=== PATIENT | female | born 1955 | race Caucasian/White ===

== ENCOUNTER 2021-08-23 13:57 | Emergency (ER) | payer MEDICARE, SELFPAY ==
[2021-08-23 13:58] VITALS: BP 156/70; PULSE 79; RESP 18; TEMP 36.2; O2SAT 100; BMI 25.7
--- NOTE | 2021-08-23 14:44 | EKG12_ITS ---
Test Reason : SOB Blood Pressure : / mmHG Vent. Rate : 070 BPM Atrial Rate : 070 BPM P-R Int : 216 ms QRS Dur : 078 ms QT Int : 426 ms P-R-T Axes : 033 -11 057 degrees QTc Int : 460 ms Sinus rhythm with 1st degree A-V block Otherwise normal ECG Confirmed by DEMARCO SUAZO, ALBERTO ([id number]), film editor supervisor GWENDOLYN SANTIAGO ([id number]) on 08/25/2021 1:47:36 PM Referred By: KAYA Confirmed By:RICKEY PAL MD
--- NOTE | 2021-08-23 14:45 | EX.ED.DYSGE1 ---
HPI History of Present Illness Chief Complaint: Shortness of Breath Informant: patient Onset/Context/Timing Onset: Today (For the last couple hours) Context: Gradual Onset Timing: Continuous Quality: hard to take a deep breath Location: chest Current Severity: Mild Maximum Severity: Mild Worsened by: nothing Relieved by: a little after albuterol MDI, coughing hard Associated Symptoms Associated Symptoms: mild nonpleuritic chest tightness Narrative Narrative: Patient has had COVID mood before about 11 days now, she tested positive on day #3, her became ill with it before she did, she states today she woke up and has felt better as she has recently, but then a couple hours later she was coughing a lot and felt like her chest was a little tight, she feels like she needs to cough up some phlegm but cannot, and feels mildly dyspneic. This was not the case before. When asked about medical history, she states she has allergies but basically does not take medicines for anything else, and she has an albuterol MDI that she tried at home. She has this because sometimes my allergies give me chest tightness although she denies having a known history of asthma. She denies any leg pain or swelling. No history of DVT or PE. She was prescribed a Z-N[place] the day she was diagnosed because of all my sinus congestion and she states that it did not help. She was prescribed no other medications during this course of COVID. Said she was feeling a little lightheaded off and on today but admits that she was hyperventilating at one point. She denies any near-syncope or syncope. States she has been drinking lots of water to try to stay hydrated. [facility] Medical History (Updated 08/23/21 @ 16:[address] Prabhakar Gonzalez MD) Seasonal allergies Allergy/AdvReac Type Severity Reaction Status Date / Time codeine AdvReac Itching Verified 08/23/21 14:00 ANTIFUNGALS AdvReac Other Uncoded 08/23/21 14:00 Social History Smoking Status: Never smoker [facility] ED Constitutional Constitutional ED: Reports malaise; Denies chills or fever(s) Eyes Eyes: Denies change in vision or diplopia ENT ENT ED: Denies rhinorrhea or sore throat Cardiovascular Cardiovascular: Reports chest pain and lightheadedness; Denies palpitations or pedal edema Respiratory/Chest Respiratory/Chest: Reports as per HPI, cough and dyspnea Gastrointestinal Gastrointestinal: Denies abdominal pain, diarrhea, nausea or vomiting Genitourinary Genitourinary ED: Denies dysuria or hematuria Musculoskeletal Musculoskeletal: Denies back pain or neck pain Integumentary Denies abscess or rash Neurologic Neurologic: Denies headache(s), paresthesias or weakness Psychiatric Psychiatric: Denies anxiety or suicidal thoughts EXAM Physical Exam Const Vital Signs: 08/23/21 13:58 08/23/21 14:59 Temperature 97.2 F L Temperature Source Temporal Pulse Rate 79 70 Respiratory Rate 18 16 Blood Pressure 156/70 H Blood Pressure Mean 98 Pulse Ox 100 100 Oxygen Delivery Method Room Air Room Air Positive well nourished and well developed Constitutional Narrative: Well-appearing in no distress General Appearance ED: well developed and NAD HEENT Reports moist mucous membranes normocephalic and atraumatic Eyes PERRL and EOMs intact bilaterally Neck full ROM, supple and no meningeal signs Resp normal respiratory effort and clear to auscultation bilaterally Effort and Inspection: able to speak in complete sentences Cardio regular rate, regular rhythm and no murmurs Rate: Negative for tachycardic GI non-tender and non-distended Auscultation: normoactive bowel sounds Palpation: soft Back/Spine no CVA tenderness General Back: other FROM Extremity normal to inspection, no calf tenderness and no pedal edema General Extremety ED: Negative for edema, pulses abnormal or tenderness General Extremity: Negative for edema or pulses abnormal Neuro oriented x3, CN's II-XII intact bilaterally, no sensory deficits noted and gait normal Sensorium / Orientation: awake and alert Motor Exam: strength 5/5 throughout Skin no rashes or lesions noted and no wounds MDM MDM MDM Narrative Medical decision making narrative: Patient's chest symptoms, discomfort and dyspnea, are resolved after single duo nebulizer treatment. Her x-ray 1 view on my interpretation is normal, the labs and troponin are normal, her EKG is normal. Her pulse ox is normal, 100%. She is reassured, these are not symptoms of pulmonary embolus, she does not have tachycardia, even with exertion. She already has an albuterol MDI, and I see no indication for prednisone/steroids at this time. Supportive care advised, we discussed reasons to return. Lab Data Attestation: I reviewed the patient's lab results. Labs: Laboratory Results - last 24 hr 08/23/21 08/23/21 15:35 15:35 WBC 9.5 RBC 4.61 Hgb 12.0 Hct 37.1 MCV 80.5 L MCH 26.0 L MCHC 32.3 RDW Std Deviation 38.1 RDW Coeff of Nickie 13.2 Plt Count 494 H MPV 8.6 Immature Gran % (Auto) 0.700 Neut % (Auto) 59.3 Lymph % (Auto) 31.6 [place] % (Auto) 7.1 Eos % (Auto) 0.9 Baso % (Auto) 0.4 Absolute Neuts (auto) 5.7 Absolute Lymphs (auto) 3.01 Nucleated RBC % 0 Sodium 136 Potassium 3.2 L Chloride 100 Carbon Dioxide 25.0 Anion Gap 11 BUN 14 Creatinine 1.08 H Estim Creat Clear Calc 47.35 Est GFR (MDRD) Af Amer 66 Est GFR (MDRD) Non-Af 54 L BUN/Creatinine Ratio 13.0 Glucose 128 H Calcium 9.5 Troponin I High Sens < 3 L Radiography Diagnostic Testing: Clinical Impression(s) from Imaging Studies Chest X-Ray 08/23/21 15:55 IMPRESSION: Normal x-ray examination of the chest. Electronically Signed: Bin Rosario MD at 16:15 EDT , EKG Initial EKG: Attestation: I personally reviewed and interpreted this EKG as follows: Interpretation: Sinus Rhythm, No Acute Injury Pattern and AV Block (1st deg) Comments: otherwise, nml Discharge Plan Triage Chief Complaint: Shortness of Breath ED Provider: Prabhakar Gonzalez Dx/Rx/DC Orders Clinical Impression: Mild reactive airways disease, COVID-19 Instructions: ED URI, Viral W/ Wheezing (Adult) Primary Care Provider: Sony Burleson Referrals: Sony Burleson MD [Primary Care Provider] - 3-5 Days if not improving Activity Restrictions/Additional Instructions: If you have recurrent symptoms, taking 2 or 3 puffs from your albuterol inhaler is reasonable, if you continue to worsen and you feel you need to be seen in the emergency department, feel free to return. Disposition Disposition: Home, Self Care
--- NOTE | 2021-08-23 14:47 | NURSING ---
NO OLD EKGS
[2021-08-23] MEDS: Ipratropium/Albuterol Sulfate 3 ML AMPUL.NEB INHALATION (14:57)
[2021-08-23 14:59] VITALS: PULSE 70; RESP 16; O2SAT 100
[2021-08-23 15:55] LABS: Absolute Lymphocyte Count 3.01 X10^3/uL (0.83-4.51); Absolute Neutrophil Count 5.7 X10^3/uL (2.0-7.7); Basophil# 0.04 X10^3/uL; Basophil% 0.4 % (0-1); Eosinophil# 0.09 X10^3/uL; Eosinophils% 0.9 % (0-5); Hematocrit 37.1 % (37-47); Lymphocyte # 3.01 X10^3/ul (0.83-4.51); Lymphocyte % 31.6 % (19-41); Mean Corp Hgb Conc 32.3 g/dL (32-36); Mean Corpuscular Volume 80.5 fL (81-99); Mean Platelet Vol. 8.6 fl (6.2-12.0); Monocyte# 0.68 X10^3/uL; Monocyte% 7.1 % (0-10); NRBC Flagged by Analyzer 0 % (0-5); Neutrophil # 5.65 X10^3/uL (2.7-7.7); Neutrophil % 59.3 % (47-70); Platelet Count 494 K/mm3 (150-450); RBC Distribution Width CV 13.2 % (11.6-14.6); RBC Distribution Width SD 38.1 fl (35.1-43.9); Red Blood Count 4.61 M/mm3 (4.2-5.4); White Blood Count 9.5 K/mm3 (4.4-11.0)
--- NOTE | 2021-08-23 15:55 | RAD_ITS ---
STUDY: X-RAY CHEST REASON FOR EXAM: Female, 65 years old. cough sob cp covid TECHNIQUE: Single frontal view of the chest. COMPARISON: None. FINDINGS: The lungs are clear and expanded. There is no demonstrated pleural abnormality. Normal size heart. Normal mediastinum and jena. Normal visualized pulmonary arteries. Normal visualized aortic arch and descending thoracic aorta. Normal visualized thoracic spine. Normal visualized ribs, clavicles, and shoulders. There is no demonstrated abnormality of the visualized soft tissue structures of the upper abdomen. RAD/Chest 1 View (Portable) IMPRESSION: Normal x-ray examination of the chest. Electronically Signed: Bin Rosario MD at 16:15 EDT ,
[2021-08-23 16:13] LABS: Anion Gap 11 (5-15); BUN 14 mg/dL (7-18); Calcium,Total 9.5 mg/dL (8.5-10.1); Chloride 100 mmol/L (98-107); Creatinine, Serum 1.08 mg/dL (0.55-1.02); EST Glomerular Filtration Rate 54 mL/min (>60); Est Glom Filt Rate - Afr Amer 66 mL/min (>60); Estimated Creatinine Clearance 47.35 ml/min; Glucose 128 mg/dL (74-106); Potassium 3.2 mmol/L (3.5-5.1); Sodium Level 136 mmol/L (136-145); Troponin-I HS < 3 pg/mL (3.0-54.0)
== END 2021-08-23 17:05 | disposition home or self-care (01) ==
PROVIDERS: Emergency Provider Emergency Medicine; PCP Family Medicine; Visit Provider Emergency Medicine
DX: U07.1 COVID-19 (principal); J45.909 Unspecified asthma, uncomplicated
CPT/HCPCS: 71045; 80048; 84484; 85025; 93005; 94640; 99282; A4216

== ENCOUNTER 2024-04-15 16:55 | Emergency (ER) | payer MEDICARE, SELFPAY ==
[2024-04-15 16:55] VITALS: BP 146/64; PULSE 76; RESP 16; TEMP 35.7; O2SAT 100; BMI 21.9
== END 2024-04-15 17:21 | disposition left against medical advice (07) ==
LOC: ED 17:28
PROVIDERS: PCP Family Medicine
DX: Z53.21 Procedure and treatment not carried out due to patient leaving prior to being seen by health care provider (principal)

== ENCOUNTER 2024-07-05 16:33 | Emergency (ER) | payer MEDICARE, SELFPAY ==
[2024-07-05 16:34] VITALS: BP 133/68; PULSE 70; RESP 18; TEMP 36.6; O2SAT 100; BMI 20.7
--- NOTE | 2024-07-05 17:10 | EKG12_ITS ---
Test Reason : Blood Pressure : */* mmHG Vent. Rate : 58 BPM Atrial Rate : 58 BPM P-R Int : 272 ms QRS Dur : 76 ms QT Int : 448 ms P-R-T Axes : 68 -7 69 degrees QTcB Int : 439 ms Sinus bradycardia with 1st degree A-V block Otherwise normal ECG Confirmed by Juan Manuel Blevins ([id number]), newspaper or periodical editor GWENDOLYN SANTIAGO ([id number]) on 07/06/2024 1:17:55 PM Referred By: Confirmed By: Juan Manuel Blevins
--- NOTE | 2024-07-05 17:14 | EDS_ITS ---
HPI History of Present Illness Chief Complaint: Abd Pain Narrative Narrative: Chief complaint and HPI: Epigastric abdominal pain. 68-year-old female with past medical history of recurrent epigastric abdominal pain and cholecystectomy presents for evaluation of epigastric abdominal pain. Patient states she has been having epigastric abdominal pain for the past 6 to 9 months. She states that she has been following with her PCP and GI, was recently switched to Protonix 3 days ago. Patient states she follows with Dr. Azar. She states she had an EGD in 2021 that was unremarkable. Patient states this pain developed approximately 3 hours ago. Pain usually resolves with Gin-[place] tablet but did not improve which is why she presents. She denies any fever, chills, shortness of breath, chest pain, nausea, vomiting, diarrhea, constipation, dysuria. Review of systems: See HPI Medications: As listed on the chart Allergies: As listed on the chart PFSH: Per chart Vital signs: As listed on the chart. Reviewed. Physical exam: Gen: A&O x3, NAD Head: Normocephalic, atraumatic Eyes: No sclera icterus, conjunctiva clear ENT: Moist mucous membranes Neck: Trachea midline, No JVD CV: RRR, no murmurs, no peripheral edema Resp: Lungs CTA BL, no w/r/c GI: Abd soft, non-distended, tender to palpation in the epigastrium,no rebound or rigidity : No CVA tenderness Musc: Full ROM, no deformity Skin: Warm, dry Neuro: Alert, oriented, grossly intact, sensation intact Psych: Cooperative, appropriate mood and affect PFSH PFSH Medical History Seasonal allergies Home Medications ?Medication ?Instructions ?Recorded ?Last Taken ?Type omeprazole 20 mg capsule,delayed 20 mg PO DAILY 07/05/24 History release Allergy/AdvReac Type Severity Reaction Status Date / Time Antifungal - Imidazole AdvReac NEEDS Verified 07/05/24 20:12 FOLLOW-UP codeine AdvReac Itching Verified 07/05/24 20:12 Family History no significant family his Social History Smoking Status: Former smoker EXAM Physical Exam Const Vital Signs: 07/05/24 16:34 07/05/24 18:34 07/05/24 20:12 Temperature 97.9 F Temperature Source Oral Pulse Rate 70 61 Respiratory Rate 18 19 H Blood Pressure 133/68 H 118/62 127/71 H Blood Pressure Mean 89 80 89 Pulse Ox 100 100 99 Oxygen Delivery Method Room Air Room Air Room Air 07/05/24 22:34 Temperature 97.9 F Temperature Source Pulse Rate 59 L Respiratory Rate 17 Blood Pressure 116/63 Blood Pressure Mean 80 Pulse Ox 99 Oxygen Delivery Method MDM MDM MDM Narrative Medical decision making narrative: 68-year-old female with past medical history of recurrent epigastric abdominal pain and cholecystectomy presents for evaluation of epigastric abdominal pain. Onset 3 hours ago. Patient follows with GI. Was recently switched to Protonix. Differential diagnosis includes but is not limited to GERD, gastritis, PUD, pancreatitis, electrolyte abnormality. NS bolus, GI cocktail, Pepcid ordered for symptoms. Abdominal labs ordered including CT abdomen and pelvis. CBC with mild leukocytosis 11.3. No anemia. CMP with transaminitis and elevated alk phos. AST 309, ALT 190, alk phos 151. Lipase elevated at 111. Troponin unremarkable x 2. UA negative for UTI. CT abdomen pelvis shows dilated intra and extrahepatic biliary ducts. The gallbladder surgically absent. Her common bile duct measures up to 20 mm approximately. Recommend further assessment with MRCP. I do not have previous labs to compare to for patient's transaminitis. I reached out to her PCP Dr. Parker. He was able to look at previous laboratory results for me. Patient just recently had laboratory workup and at that time had no transaminitis or elevated alk phos. Concern is for choledocholithiasis. On reevaluation, patient states her pain is under control with the previous treatment and declined further pain medicine. Although pain is still present. I do not have GI on-call at this time. I did reach out to the hospitalist given that GI is not available on-call and if patient does have a stone on MRCP she will likely need ERCP that will not be available recommend transfer. Given that patient follows with [place]. I reached out to [facility], I spoke to the hospitalist Dr. Chandler. He accepted admission. He recommended giving Zosyn to prevent cholangitis. Zosyn ordered, maintenance fluids started. Patient will be transferred [facility]. Patient was updated of all results and confirmed understanding of the plan. Impression: 1. Epigastric abdominal pain 2. Transaminitis 3. Biliary duct dilation including common bile duct, concern for cholelithiasis EKG: Interpreted by me/EM physician: EKG shows sinus bradycardia with a first-degree bleed block. Heart rate 58. Lab Data Labs: Laboratory Results - last 24 hr 07/05/24 07/05/24 07/05/24 16:50 17:20 19:47 WBC 11.3 H RBC 4.75 Hgb 12.9 Hct 39.0 MCV 82.1 MCH 27.2 MCHC 33.1 RDW Std Deviation 39.7 RDW Coeff of Nickie 13.2 Plt Count 457 H MPV 9.1 Immature Gran % (Auto) 0.300 Neut % (Auto) 70.3 H Lymph % (Auto) 20.9 [place] % (Auto) 7.3 Eos % (Auto) 0.9 Baso % (Auto) 0.3 Absolute Neuts (auto) 8.0 H Absolute Lymphs (auto) 2.36 Nucleated RBC % 0 Sodium 140 Potassium 3.5 Chloride 103 Carbon Dioxide 26.2 Anion Gap 11 BUN 17 Creatinine 0.88 Estim Creat Clear Calc 55.26 Est GFR (MDRD) Non-Af 72 BUN/Creatinine Ratio 19.7 Glucose 122 H Calcium 9.5 Total Bilirubin 0.60 AST 309 H ALT 190 H Alkaline Phosphatase 151 H Troponin T High Sens 7 Troponin T Hi Sens 2 Hr 13 Total Protein 7.1 Albumin 4.4 Globulin 2.7 Albumin/Globulin Ratio 1.6 Lipase 111 H Urine Color Yellow Urine Clarity Clear Urine pH 8.0 Ur Specific [place] 1.010 Urine Protein Negative Urine Glucose (UA) Normal Urine Ketones Negative Urine Occult Blood Negative Urine Nitrite Negative Urine Bilirubin Negative Urine Urobilinogen Normal Ur Leukocyte Esterase 25 H Urine RBC 0 SEEN Urine WBC 0-5 SEEN Ur Squamous Epith Cells 0-5 SEEN Urine Bacteria 0 SEEN Urine Mucus 0 SEEN Radiography Diagnostic Testing: Clinical Impression(s) from Imaging Studies Abdomen/Pelvis CT 07/05/24 17:51 IMPRESSION: 1. Dilated intra and extrahepatic biliary ducts as above status post cholecystectomy. Correlate with laboratory values and consider further assessment with MRCP if indicated. 2. No bowel obstruction or focal inflammatory process. Reading Location: [facility] Discharge Plan Triage Chief Complaint: Abd Pain ED Provider: Arnold Lezama Dx/Rx/DC Orders Prescriptions: No Action omeprazole 20 mg capsule,delayed release(DR/EC) 20 mg PO DAILY Primary Care Provider: Yandel Parker Referrals: Sony Burleson MD [Non-Staff] - Print Language: Citizen Of [place] Disposition Disposition: Acute Care Hospital Discharge Location: [facility] Discharge Date/Time: 07/05/24 21:40
[2024-07-05 17:21] LABS: Absolute Lymphocyte Count 2.36 X10^3/uL (0.83-4.51); Basophil# 0.03 X10^3/uL; Basophil% 0.3 % (0-1); Eosinophils% 0.9 % (0-5); Hemoglobin 12.9 g/dL (12.0-15.0); Lymphocyte # 2.36 X10^3/ul (0.83-4.51); Lymphocyte % 20.9 % (19-41); Mean Corp Hgb Conc 33.1 g/dL (32-36); Mean Corpuscular Hgb 27.2 pg (27.0-32.0); Mean Corpuscular Volume 82.1 fL (81-99); Mean Platelet Vol. 9.1 fl (6.2-12.0); Monocyte# 0.82 X10^3/uL; Monocyte% 7.3 % (0-10); NRBC Flagged by Analyzer 0 % (0-5); Neutrophil # 7.95 X10^3/uL (2.7-7.7); Neutrophil % 70.3 % (47-70); Platelet Count 457 K/mm3 (150-450); RBC Distribution Width CV 13.2 % (11.6-14.6); RBC Distribution Width SD 39.7 fl (35.1-43.9); Red Blood Count 4.75 M/mm3 (4.2-5.4); White Blood Count 11.3 K/mm3 (4.4-11.0)
[2024-07-05] MEDS: Mag Hydrox/Al Hydrox/Simeth 30 ML UDC PO (17:21)
[2024-07-05] MEDS: Lidocaine 2% Viscous15 ML UDC 15 ML PO (17:21)
[2024-07-05] MEDS: 0.9% Normal Saline (1000mL) 1,000 ML 999 ML IV (17:22)
[2024-07-05] MEDS: Famotidine 200 MG/20 ML MDV 20 MG in 0.9% Normal Saline (Pres. free 8 ML 300 MG IV (17:29)
[2024-07-05 17:36] LABS: Bacteria 0 SEEN /hpf (None Seen); Mucous, Urine 0 SEEN /hpf (<or=2+); Red Blood Cells-Urine 0 SEEN /hpf (0-5)
[2024-07-05 17:40] LABS: Color, Urine Yellow (Yellow); Glucose, Dipstick Normal (Normal); Ketone-Dipstick Negative (Negative); Leukocyte Esterase-Dipstick 25 /ul (Negative); Nitrite-Dipstick Negative (Negative); Occult Blood-Urine Negative /ul (Negative); Protein-Dipstick Negative (Negative); Urine Bilirubin Dipstick Negative (Negative); Urine Clarity Clear (Clear); Urine Urobilinogen Normal (Normal)
--- NOTE | 2024-07-05 17:51 | CT_ITS ---
PROCEDURE: ABDOMEN/PELVIS W IV CONT ONLY 07/05/2024 REASON FOR EXAM: EPIGASTRIC ABDOMINAL PAIN TECHNIQUE: Abdomen and pelvis CT with intravenous contrast. Coronal and Sagittal reconstruction series were provided. One or more dose reduction techniques were used (e.g., Automated exposure control, adjustment of the mA and/or kV according to patient size, use of iterative reconstruction technique. COMPARISON: None FINDINGS: Lung bases are clear. Liver, spleen, pancreas and adrenal glands are intact. Gallbladder is surgically absent. Dilated intra and extrahepatic biliary ducts. Common bile duct measures up to 20 mm proximally. Kidneys enhance symmetrically. No suspicious renal mass, calculi or hydronephrosis. Urinary bladder is underdistended which limits assessment. Uterus is present. No bowel obstruction, focal bowel wall thickening or significant perienteric inflammation. Appendix is not visualized. No pelvic free fluid. No free air. Calcified nonaneurysmal abdominal aorta. No bulky adenopathy. Superficial soft tissues are within normal limits. No acute osseous abnormality. Degenerative changes of the spine. Dextroscoliosis. CT/Abdomen/Pelvis W IV Cont ONLY IMPRESSION: 1. Dilated intra and extrahepatic biliary ducts as above status post cholecyste ctomy. Correlate with laboratory values and consider further assessment with MRCP if indicated. 2. No bowel obstruction or focal inflammatory process. Reading Location: [facility]
[2024-07-05 17:55] LABS: Squamous Epithelial Cells - UA 0-5 SEEN /hpf (5-10); White Blood Cells 0-5 SEEN /hpf (0-5)
[2024-07-05 18:03] LABS: ALB/GLOB Ratio 1.6 RATIO (0.9-2.4); AST(SGOT) 309 U/L (<=31); Alanine Aminotransfer ALT/SGPT 190 U/L (<=34); Albumin, Serum 4.4 g/dL (3.4-4.8); Alkaline Phosphatase 151 U/L (35-104); Anion Gap 11 (5-15); BUN 17 mg/dL (4-19); BUN/Creat Ratio 19.7 RATIO (10-20); Calcium,Total 9.5 mg/dL (7.6-11.0); Carbon Dioxide 26.2 mmol/L (21.0-32.0); Chloride 103 mmol/L (98-108); Creatinine, Serum 0.88 mg/dL (0.70-1.20); EST Glomerular Filtration Rate 72 (>60); Estimated Creatinine Clearance 55.26 ml/min (50-250); Globulin 2.7 g/dL (2.2-4.2); Glucose 122 mg/dL (70-99); Lipase 111 U/L (13-75); Potassium 3.5 mmol/L (3.3-5.1); Protein, Total 7.1 g/dL (5.9-8.4); Sodium Level 140 mmol/L (133-145); Troponin T High Sensitivity 7 ng/L (<=14)
[2024-07-05 18:34] VITALS: BP 118/62; O2SAT 100
--- NOTE | 2024-07-05 19:19 | PCM.HP.STD ---
HPI - General General Date of Admission: 07/05/24 Date of Service: 07/05/24 Chief Complaint: Abdominal Pain. HPI Narrative DOLLY MATUTE, is a 68 F with a past medical history of cholecystectomy with chronic who presents [facility] Medical History Seasonal allergies Allergy/AdvReac Type Severity Reaction Status Date / Time Antifungal - Imidazole AdvReac NEEDS Verified 07/05/24 16:34 FOLLOW-UP codeine AdvReac Itching Verified 07/05/24 16:34 Family History no significant family his Social History Smoking Status: Former smoker Vital Signs Vital Signs Vital Signs: 07/05/24 16:34 07/05/24 18:34 Temperature 97.9 F Temperature Source Oral Pulse Rate 70 Respiratory Rate 18 Blood Pressure 133/68 H 118/62 Blood Pressure Mean 89 80 Pulse Ox 100 100 Oxygen Delivery Method Room Air Room Air Weight Weight: 124 lb 6.4 oz Body Mass Index (BMI) 20.7 Results Lab / Micro Data 07/05/24 16:50 07/05/24 16:50 Labs: Laboratory Results - last 24 hr 07/05/24 16:50: WBC 11.3 H, RBC 4.75, Hgb 12.9, Hct 39.0, MCV 82.1, MCH 27.2, MCHC 33.1, RDW Std Deviation 39.7, RDW Coeff of Nickie 13.2, Plt Count 457 H, MPV 9.1, Immature Gran % (Auto) 0.300, Neut % (Auto) 70.3 H, Lymph % (Auto) 20.9, [place] % (Auto) 7.3, Eos % (Auto) 0.9, Baso % (Auto) 0.3, Absolute Neuts (auto) 8.0 H, Absolute Lymphs (auto) 2.36, Nucleated RBC % 0, Sodium 140, Potassium 3.5, Chloride 103, Carbon Dioxide 26.2, Anion Gap 11, BUN 17, Creatinine 0.88, Estim Creat Clear Calc 55.26, Est GFR (MDRD) Non-Af 72, BUN/Creatinine Ratio 19.7, Glucose 122 H, Calcium 9.5, Total Bilirubin 0.60, AST 309 H, ALT 190 H, Alkaline Phosphatase 151 H, Troponin T High Sens 7, Total Protein 7.1, Albumin 4.4, Globulin 2.7, Albumin/Globulin Ratio 1.6, Lipase 111 H 07/05/24 17:20: Urine Color Yellow, Urine Clarity Clear, Urine pH 8.0, Ur Specific [place] 1.010, Urine Protein Negative, Urine Glucose (UA) Normal, Urine Ketones Negative, Urine Occult Blood Negative, Urine Nitrite Negative, Urine Bilirubin Negative, Urine Urobilinogen Normal, Ur Leukocyte Esterase 25 H, Urine RBC 0 SEEN, Urine WBC 0-5 SEEN, Ur Squamous Epith Cells 0-5 SEEN, Urine Bacteria 0 SEEN, Urine Mucus 0 SEEN Imaging Radiology Impression Abdomen/Pelvis CT 07/05/24 17:51 IMPRESSION: 1. Dilated intra and extrahepatic biliary ducts as above status post cholecystectomy. Correlate with laboratory values and consider further assessment with MRCP if indicated. 2. No bowel obstruction or focal inflammatory process. Reading Location: [facility]
--- NOTE | 2024-07-05 19:48 | PCA ---
Patient accepted at [facility] waiting on bed to transfer
[2024-07-05] MEDS: Piperacil/Tazobactam 3.375 GM in 0.9% Normal Saline (50mL MB+) 50 ML IV (20:07)
[2024-07-05 20:12] VITALS: BP 127/71; PULSE 61; RESP 19; O2SAT 99
[2024-07-05 20:17] LABS: Troponin T High Sens 2 HR 13 ng/L (<=14)
[2024-07-05] MEDS: 0.9% Normal Saline (1000mL) 1,000 ML 100 ML IV (20:28)
--- NOTE | 2024-07-05 21:04 | PCA ---
Pt accepted to [place] room 3123 Nurse to Nurse # [phone]
[2024-07-05 22:34] VITALS: BP 116/63; PULSE 59; RESP 17; TEMP 36.6; O2SAT 99
== END 2024-07-05 21:40 | disposition short-term general hospital (02) ==
LOC: ED 17:17
PROVIDERS: Emergency Provider Surgery; Visit Provider Surgery
DX: R10.13 Epigastric pain (principal); R74.01 Elevation of levels of liver transaminase levels; K83.8 Other specified diseases of biliary tract; Z87.891 Personal history of nicotine dependence; Z79.899 Other long term (current) drug therapy
CPT/HCPCS: 74177; 80053; 81001; 83690; 84484; 85025; 93005; 96365; 96367; 99284; Q9967; A4216

== ENCOUNTER → 2024-11-02 | Outpatient (CLI) | payer MEDICARE, SELFPAY ==
--- NOTE | 2024-11-02 12:21 | CT_ITS ---
PROCEDURE: LIMITED CHEST CT CARDIAC ONLY 11/02/2024 REASON FOR EXAM: CHEST PAIN, ABDALLA, CAD RISK, SOB TECHNIQUE: LIMITED CHEST CT CARDIAC ONLY CONTRAST: Isovue 370 VOLUME: 77 mL One or more dose reduction techniques were used (e.g., Automated exposure control, adjustment of the mA and/or kV according to patient size, use of iterative reconstruction technique). RADIATION DOSE SUMMARY: CTDlvol: 31.4 mGy DLP: 1107.83 mGycm COMPARISON: None FINDINGS: The heart is nonenlarged. No coronary artery calcification is seen. Tiny calcified granuloma in the left upper lobe posteriorly. Calcified right paratracheal lymph node.
[2024-11-02 12:41] VITALS: BP 117/65; PULSE 60; RESP 18; O2SAT 100; BMI 20.5
[2024-11-02 12:53] VITALS: BP 90/66; PULSE 68
[2024-11-02] MEDS: Nitroglycerin SL (ED/IMG/CATH) 0.4 MG TABLET SL (12:53)
--- NOTE | 2024-11-03 17:17 | CCTA.WCONT ---
CCTA w/Cont Coronary Arteries Date of Study:: 11/02/24 Chest pain dyspnea on exertion Coronary Calcium Scoring: High-resolution Computed Tomographic imaging of the chest was performed on [11/02/2024], with particular attention paid to the coronary arteries. Intravenous contrast agent was administered per protocol and images reconstructed and displayed. LEFT MAIN CORONARY ARTERY: Arises from the left main coronary artery and bifurcates the left anterior descending and left circumflex artery. No significant stenosis noted in this vessel. [] LEFT ANTERIOR DESCENDING CORONARY ARTERY: This vessel courses towards the apex of the ventricle with no significant atherosclerotic plaque or stenosis present. No coronary calcification is noted. [] LEFT CIRCUMFLEX CORONARY ARTERY: Nondominant vessel with no significant atherosclerotic plaque noted [] RIGHT CORONARY ARTERY: Dominant right coronary artery with no significant atherosclerotic plaquing or stenosis present. [] THORACIC AORTA: [] PULMONARY ARTERY: [] LEFT ATRIUM/APPENDAGE: [] MITRAL VALVE: [] AORTIC VALVE: [] LEFT VENTRICLE: [] CORONARY CALCIUM SCORE: Not performed [] Calcium Scoring Interpretation: Different methods to categorize the overall amount of coronary plaque. Overall amount CAC SIS Visual of coronary plaque P1 Mild -100 <2 1-2 vessels with mild amount of plaque P2 Moderate 101-300 3-4 1-2 vessels with moderate amount, 3 vessels with mild amount of plaque P3 Severe 301-999 5-7 3 vessels with moderate amount, 1 vessel with severe amount of plaque P4 Extensive >1000 >8 2-3 vessels with severe amount of plaque Conclusion: CT angiogram with no significant atherosclerotic plaquing present.
== END | disposition home or self-care (01) ==
LOC: CT 12:21
PROVIDERS: Referring Provider Nurse Practitioner Family; Visit Provider Nurse Practitioner Family
DX: R07.9 Chest pain, unspecified (principal); R06.02 Shortness of breath
CPT/HCPCS: 75574; 76380; Q9967